=== PATIENT | female | born 1985 | race Caucasian/White ===

== ENCOUNTER 2017-01-20 10:16 | Emergency (ER) | payer OTHER ==
[2017-01-20 10:40] VITALS: RESP 16
[2017-01-20] MEDS ORDERED: ONDANSETRON 4 MG/2 ML VIAL IVP ONE (11:07)
[2017-01-20] MEDS ORDERED: NS 1,000 ML IV ONE (11:07)
--- NOTE | 2017-01-20 11:11 | EDPHY ---
H & P Stated Complaint: cough, body aches, fever yesterday Source: Patient Exam Limitations: No limitations - Personal History LMP (Females 10-55): 8-14 Days Ago Current Tetanus/Diphtheria Vaccine: Unsure Current Tetanus Diphtheria and Acellular Pertussis (TDAP): Unsure Tetanus Vaccine Date: 09/23/15 - Medical/Surgical History Hx Asthma: No Hx Chronic Respiratory Disease: No Hx Diabetes: No Hx Cardiac Disease: No Hx Renal Disease: No Hx Cirrhosis: No Hx Alcoholism: No Hx HIV/AIDS: No Hx Splenectomy or Spleen Trauma: No Other PMH: denies. frequent bronchitis - Social History Smoking Status: Never smoked HPI/ROS: CHIEF COMPLAINT: sore throat, body aches, fever HISTORY OF PRESENT ILLNESS: complains of 2 days of sore throat, fever, body aches, chills, chest congestion, dry cough. Symptoms vary from mild to moderate. They have been present ever since they started, other than the fever. Pain last night. No chest pain. The cough is sometimes pleuritic. Occasionally productive usually dry. Sore throat is moderate to severe and very difficult for her to eat or drink. She has no abdominal or urinary complaints. No pelvic pain. No neck pain or stiffness. Some headache. No other associated complaints or modifying factors. She is concerned she has been around people work of tested positive for mono. REVIEW OF SYSTEMS: Ten systems reviewed and are negative unless otherwise noted in the HPI EXAMINATION General Appearance: Alert, no distress Head: normocephalic, atraumatic Eyes: Pupils equal and round, no conjunctival pallor or injection ENT, Mouth: Mucous membranes moist . Uvula midline. No edema. There is posterior erythema. No abnormality of the floor of mouth. Neck: Normal inspection, supple, non-tender . Anterior cervical lymphadenopathy. Painless range of motion all planes. No nuchal rigidity. No meningismus. Respiratory: Lungs are clear to auscultation . No wheezing, rhonchi or crackles. No distress Cardiovascular: Regular rate and rhythm. No murmur. Pulses intact distally and symmetrically. Gastrointestinal: Abdomen is soft and nontender . No splenomegaly. No CVA tenderness. Back: non-tender, no bony abnormalities Neurological: A&O, nonfocal, normal gait Good strength. Skin: Warm and dry, no rash . No petechiae or purpura. Extremities: Nontender, no pedal edema Psychiatric: Mood and affect normal DIFFERENTIAL DIAGNOSES: Including but not limited to Mononucleosis, influenza, viral illness, and the acute pharyngitis MDM: 11:08 a.m. cough, sore throat, body aches, chills. Patient has examination were consistent with mono than influenza, but she does have influenza type complaints. Vital signs are stable with mild tachycardia. Denies . No vomiting but some nausea. Laboratory studies are pending. I will provide IV fluid resuscitation As her sore throat is limiting her intake by mouth. 12:20 p.m. I have re-evaluated the patient. All laboratory studies are negative, including a negative Monospot negative influenza. Patient has bronchitis with acute pharyngitis. Possibly streptococcal versus more likely viral illness. I will treat her prophylactically with Decadron, Zofran and Zithromax in case this is bacterial. I discussed that she may not improve with the antibiotics, but she is more comfortable with treating with Antibiotics she is around elderly patients. I discussed that her etiology is likely viral and stressed importance of hand hygiene and respiratory droplet hygiene. She is to follow up with her primary care physician for definitive care. Return to the ER for worsening symptoms, chest pain, neck pain or stiffness. She is comfortable with this plan, I have answered all her questions, she is discharged home in stable condition. SUPERVISION: This patient was independently evaluated without the aide of supervising physician. (Сергей Sahu) Constitutional: Initial Vital Signs Temperature (C) 97.5 F 01/20/17 10:38 Heart Rate 92 01/20/17 10:38 Respiratory Rate 16 01/20/17 10:38 Blood Pressure 142/83 H 01/20/17 10:38 O2 Sat (%) 100 01/20/17 10:38 O2 Delivery Mode Room Air Allergies/Adverse Reactions: No Known Allergies Allergy (Verified 01/20/17 10:36) Home Medications: Medication Instructions Recorded 12/11/15 Docusate Sodium [Colace 100 MG (*)] 100 mg PO BID PRN #0 cap 12/13/15 Ibuprofen [Motrin (*)] 600 mg PO Q6 PRN #30 tab 12/13/15 Iron Polysacch/Iron Heme Polyp 28 mg PO DAILY #0 tab 12/13/15 [Bifera] Azithromycin [Zithromax] 250 mg PO DAILY #6 tab 01/20/17 Dexamethasone [Decadron 4 MG (*)] 8 mg PO DAILY #2 tab 01/20/17 Ondansetron Odt [Zofran Odt 4 mg 4 mg PO Q6 PRN #12 tab 01/20/17 (*)] Medical Decision Making ED Course/Re-evaluation: The patient was evaluated and managed by the physician's hotel administrative assistant. My cosignature indicates that I reviewed the chart and I agree with the findings and plan of care as documented. I am the secondary supervising physician. ( Merari Stahl) - Data Points Laboratory Results: Laboratory Results 01/20/17 11:24 01/20/17 11:24 01/20/17 01/20/17 01/20/17 11:30 11:24 11:24 WBC RBC Hgb Hct MCV MCH MCHC RDW Plt Count MPV Neut % (Auto) Lymph % (Auto) [place] % (Auto) Eos % (Auto) Baso % (Auto) Nucleat RBC Rel Count Absolute Neuts (auto) Absolute Lymphs (auto) Absolute Monos (auto) Absolute Eos (auto) Absolute Basos (auto) Absolute Nucleated RBC Immature Gran % Immature Gran # Sodium 144 mEq/L mEq/L (134-144) Potassium 4.7 mEq/L mEq/L (3.5-5.2) Chloride 109 mEq/L mEq/L (97-110) Carbon Dioxide 24 mEq/l mEq/l (22-31) Anion Gap 11 mEq/L mEq/L (8-16) BUN 13 mg/dL mg/dL (7-23) Creatinine 0.6 mg/dL mg/dL (0.6-1.0) Estimated GFR > 60 Glucose 81 mg/dL mg/dL (70-100) Calcium 9.6 mg/dL mg/dL (8.5-10.4) Beta HCG, Qual NEGATIVE Monoscreen NEGATIVE (NEGATIVE) Influenza Typ A,B (DFA) NEGATIVE FOR FLU (NEGATIVE) 01/20/17 11:24 WBC 8.87 10^3/uL 10^3/uL (3.80-9.50) RBC 4.47 10^6/uL 10^6/uL (4.18-5.33) Hgb 13.5 g/dL g/dL (12.6-16.3) Hct 40.4 % % (38.0-47.0) MCV 90.4 fL fL (81.5-99.8) MCH 30.2 pg pg (27.9-34.1) MCHC 33.4 g/dL g/dL (32.4-36.7) RDW 13.8 % % (11.5-15.2) Plt Count 348 10^3/uL 10^3/uL (150-400) MPV 8.5 fL L fL (8.7-11.7) Neut % (Auto) 74.2 % % (39.3-74.2) Lymph % (Auto) 15.3 % % (15.0-45.0) [place] % (Auto) 8.6 % % (4.5-13.0) Eos % (Auto) 1.4 % % (0.6-7.6) Baso % (Auto) 0.3 % % (0.3-1.7) Nucleat RBC Rel Count 0.0 % % (0.0-0.2) Absolute Neuts (auto) 6.58 10^3/uL H 10^3/uL (1.70-6.50) Absolute Lymphs (auto) 1.36 10^3/uL 10^3/uL (1.00-3.00) Absolute Monos (auto) 0.76 10^3/uL 10^3/uL (0.30-0.80) Absolute Eos (auto) 0.12 10^3/uL 10^3/uL (0.03-0.40) Absolute Basos (auto) 0.03 10^3/uL 10^3/uL (0.02-0.10) Absolute Nucleated RBC 0.00 10^3/uL 10^3/uL (0-0.01) Immature Gran % 0.2 % % (0.0-1.1) Immature Gran # 0.02 10^3/uL 10^3/uL (0.00-0.10) Sodium Potassium Chloride Carbon Dioxide Anion Gap BUN Creatinine Estimated GFR Glucose Calcium Beta HCG, Qual Monoscreen Influenza Typ A,B (DFA) Medications Given: Discontinued Medications Sodium Chloride (Ns) 1,000 mls @ 0 mls/hr IV ONCE ONE PRN Reason: Wide Open Stop: 01/20/17 11:08 Last Admin: 01/20/17 11:10 Dose: 1,000 mls Ibuprofen (Motrin) 600 mg PO EDNOW ONE Stop: 01/20/17 11:39 Last Admin: 01/20/17 11:50 Dose: 600 mg Ondansetron HCl (Zofran) 4 mg IVP EDNOW ONE Stop: 01/20/17 11:08 Last Admin: 01/20/17 11:10 Dose: 4 mg Departure - Departure Disposition: Home, Routine, Self-Care Clinical Impression: Flu-like symptoms Pharyngitis Qualifiers: Pharyngitis/tonsillitis etiology: unspecified etiology Qualified Code(s): J02.9 - Acute pharyngitis, unspecified Bronchitis, acute Qualifiers: Bronchitis organism: unspecified organism Qualified Code(s): J20.9 - Acute bronchitis, unspecified Condition: Good Instructions: Acute Bronchitis (ED), Pharyngitis (ED) Additional Instructions: Anti-inflammatories [id number] as discussed, Zithromax as discussed, 1 time dose of Decadron as prescribed. Follow up with primary care physician for definitive care. Return to ER for worsening symptoms, any chest pain, fever neck pain or stiffness Referrals: NONE *PRIMARY CARE P,. [Primary Care Provider] - As per Instructions Lee Ann Ibarra MD [Medical Doctor] - As per Instructions Stand Alone Forms: Work Excuse Prescriptions: Azithromycin [Zithromax] 250 mg PO DAILY #6 tab Dexamethasone [Decadron 4 MG (*)] 8 mg PO DAILY #2 tab Ondansetron Odt [Zofran Odt 4 mg (*)] 4 mg PO Q6 PRN #12 tab PRN Reason: Nausea/Vomiting, Use 1st
[2017-01-20 11:32] LABS: % IMMATURE GRANULYOCYTES 0.2 % (0.0-1.1); ABSOLUTE IMMATURE GRANULOCYTES 0.02 10^3/uL (0.00-0.10); ADD DIFF? NO; ADD MORPH? NO; ADD SCAN? NO; ATYPICAL LYMPHOCYTE FLAG 10 (0-99); FRAGMENT RBC FLAG 0 (0-99); HEMATOCRIT 40.4 % (38.0-47.0); HEMOGLOBIN 13.5 g/dL (12.6-16.3); LEFT SHIFT FLG 0 (0-99); LIPEMIA HEMOLYSIS FLAG 80 (0-99); MEAN CELL HEMOGLOBIN 30.2 pg (27.9-34.1); MEAN CELL HEMOGLOBIN CONCENTR. 33.4 g/dL (32.4-36.7); MEAN CELL VOLUME 90.4 fL (81.5-99.8); MEAN PLATELET VOLUME 8.5 fL (8.7-11.7); PLATELET CLUMPS FLAG 10 (0-99); PLATELET COUNT 348 10^3/uL (150-400); RED BLOOD CELL COUNT 4.47 10^6/uL (4.18-5.33); RED CELL DISTRIBUTION WIDTH 13.8 % (11.5-15.2)
[2017-01-20] MEDS ORDERED: IBUPROFEN 600 MG TAB PO ONE (11:38)
[2017-01-20 11:57] LABS: BHCG-QUALITATIVE NEGATIVE
[2017-01-20 12:01] LABS: MONO TEST NEGATIVE (NEGATIVE)
[2017-01-20 12:04] LABS: ANION GAP 11 mEq/L (8-16); CALCIUM 9.6 mg/dL (8.5-10.4); CARBON DIOXIDE 24 mEq/l (22-31); CHLORIDE 109 mEq/L (97-110); CREATININE 0.6 mg/dL (0.6-1.0); GLOMERULAR FILTRATION RATE > 60; GLUCOSE 81 mg/dL (70-100); POTASSIUM 4.7 mEq/L (3.5-5.2); SODIUM 144 mEq/L (134-144)
[2017-01-20 12:46] VITALS: BP 104/76; PULSE 60; TEMP 98.1; O2SAT 99
== END 2017-01-20 12:40 | disposition home or self-care (01) ==
DX: J11.1 Influenza due to unidentified influenza virus with other respiratory manifestations (principal); J20.9 Acute bronchitis, unspecified
CPT/HCPCS: 96374; J2405